=== PATIENT | male | born 1980 | race Caucasian/White ===

== ENCOUNTER 2020-06-17 11:40 | Emergency (ER) | payer BC, SELFPAY ==
--- NOTE | 2020-06-17 11:44 | ED.DENTAL ---
HPI - Dental/Oral General Chief complaint: Dental/Oral Stated complaint: tooth infection Time Seen by Provider: 06/17/20 11:44 Source: patient and RN notes reviewed History of Present Illness HPI Narrative: Patient is a 39-year-old male who presents the urgent care with complaints of frontal dental pain. Patient states he has a draining abscess to the gumline. States that it has been there for approximately 2 to 3 weeks and has had increased pain more recently. Patient is a daily smoker and has not seen a dentist in some time. Denies any fever, chills, nausea, vomiting. No other acute complaints. No acute distress noted. Patient aware of the plan of care. Related Data Allergies Allergy/AdvReac Type Severity Reaction Status Date / Time Penicillins Allergy Unknown Other Verified 06/17/20 11:50 Review of Systems Review of Systems: Narrative: CONSTITUTIONAL: Denies fever, chills, or sweats. EYES: Denies visual changes, redness, or discharge. ENT: Denies rhinorrhea, congestion, sore throat, or otalgia. Reports of upper midline/left dental pain and abscess CARDIOVASCULAR: Denies chest pain, palpitations, or edema. RESPIRATORY: Denies cough or dyspnea. GASTROINTESTINAL: Denies abdominal pain, nausea, vomiting, or diarrhea. GENITOURINARY: Denies dysuria or hematuria. SKIN: Denies rash or itching. MUSCULOSKELETAL: Denies back pain, joint pain, or myalgia. NEUROLOGIC: Denies headache, numbness, or weakness. All other systems reviewed are negative, except as documented in HPI. PMFSH Comments At the time of my signature, I reviewed and agree with the nursing past medical, surgical, social, and family history. There is no relevant family history pertinent to the patient complaint. Exam Narrative: Exam Narrative: GENERAL: This is a well-nourished, well-developed patient, in no apparent distress. HEAD: normocephalic, atraumatic. EYES: PERRL. Sclera clear/white. Vision is grossly intact. EARS: External ears normal NOSE: External nose normal with no obvious nasal discharge, nares without redness, no rhinorrhea. THROAT: Mucous membranes moist DENTAL: Left central incisor appears to be failing with notable draining abscess to the gumline with surrounding erythema NECK: Neck supple SKIN: warm, intact with no suspicious lesions or rash, good texture and turgor. NEURO: awake, alert, and oriented to person, place and time. There were no obvious focal neurologic abnormalities. EXTREMITIES: No clubbing, cyanosis, or edema. Course Vital Signs Vital signs: Vital Signs Temperature 98.5 F 06/17/20 11:46 Pulse Rate 85 06/17/20 11:46 Respiratory Rate 16 06/17/20 11:46 Blood Pressure 146/91 H 06/17/20 11:46 Pulse Oximetry 100 06/17/20 11:46 Temperature 98.5 F 06/17/20 11:54 Pulse Rate 85 06/17/20 11:54 Respiratory Rate 16 06/17/20 11:54 Blood Pressure 146/91 H 06/17/20 11:54 Pulse Oximetry 100 06/17/20 11:54 Reviewed-patient is informed that they may have pre-hypertension or hypertension based on a blood pressure reading in the department. I recommend the patient call the primary care provider listed on their discharge instructions or a physician of their choice this week to arrange follow-up for further evaluation of possible pre-hypertension or hypertension. MDM - Dental/Oral MDM Narrative Medical decision making narrative: Advised patient to complete oral antibiotic regimen as prescribed. Make sure to eat and drink with medication. Use ibuprofen as needed for pain. You will need to follow-up with a dentist [facility] to fix the underlying problem. It is likely you will need a root canal. Be sure to practice good oral hygiene with brushing, flossing daily. Follow-up with your PCP within 2 to 5 days or for worsening symptoms or failure to improve. Differential Diagnosis Differential diagnosis: Likely gingival abscess, dental caries, toothache, dental abscess and fracture of tooth Critical Care Time Critical Care Time
[2020-06-17 11:46] VITALS: BP 146/91; PULSE 85; RESP 16; TEMP 36.9; O2SAT 100
[2020-06-17 11:54] VITALS: BP 146/91; PULSE 85; RESP 16; TEMP 36.9; O2SAT 100
== END 2020-06-17 11:59 | disposition home or self-care (01) ==
PROVIDERS: Emergency Provider Nurse Practitioner Family
DX: K04.7 Periapical abscess without sinus (principal)
CPT/HCPCS: 99213; G0463